=== PATIENT | female | born 1985 | race Caucasian/White ===

== ENCOUNTER 2017-01-08 09:28 | Outpatient (CLI) | payer SELFPAY ==
[~2017-01-08] VITALS: Ht 165.1 cm; Wt 93.7 kg
[2017-01-08] MEDS ORDERED: PRENTAB9 PO (09:59)
[2017-01-08 10:01] VITALS: BP 103/60
--- NOTE | 2017-01-08 12:38 | HPE ---
DATE OF ADMISSION: 01/08/2017 This lady is a 30-year-old, 1, para 0, last menstrual period (LMP) 06/12/2016, expected date of confinement (EDC) 03/19/2017 at 30 weeks of gestation with decreased movement for 24 hours. RISK FACTORS: She is Rh negative, proteinuria of 333 grams. She has chronic hypertension, treated on lisinopril. She has had a history of LEEP conization of her cervix. LABS: B negative. HIV negative. Hepatitis negative. RPR negative. Rubella immune. Varicella immune. Pap normal. Gonorrhea and chlamydia are negative. 1-hour glucose was 101. CF was negative. EXAMINATION: No distress. Symphysis fundus height is 30. Category 1 strip. No contractions. No decelerations. The patient is not feeling movement. No vaginal bleeding or loss. Blood pressure 103/60, respirations 18, pulse 87, temperature 99.3. Urine 1.000, pH 7, 2+ leukocyte esterase, everything else is negative. The rest the examination is unremarkable. Normocephalic, atraumatic. Neck full range of motion. Pupils equal and reactive to light. Distal pulses symmetric. No evidence of deep vein thrombosis (DVT), pulmonary embolus (PE) or superficial phlebitis. Lungs are clear bilaterally to bases. No wheezes or rhonchi. No costovertebral angle (CVA) tenderness. Uterus is nontender. Four quadrant bowel sounds. Appropriate symphysis fundus height. No rashes, lesions or pruritus. No arthralgia or myalgia. No complaints of cough, wheezes, shortness of breath or dyspnea on exertion. No chest pain. No bleeding. Neuro complete. No incontinency or frequency. No nausea, vomiting, diarrhea or constipation. No diabetic issues. No MANHOLE STRIPPER issues, except she has had a LEEP conization previously which is not complicating this . PAST SURGICAL HISTORY: Noncontributory. FAMILY HISTORY: Negative. She does not smok, drink or abuse drugs. There is no domestic violence. In summary, we have a 30-week gestation with decreased movement of two days and reactive NST. She is planned induction at 39 weeks. She is monitoring at 32 weeks. She was discharged undelivered with precautions and kick chart was reviewed.
== END 2017-01-08 10:37 | disposition home or self-care (01) ==
LOC: M LDO 09:28
PROVIDERS: ATTEND Obstetrics & Gynecology
DX: O36.8130 Decreased fetal movements, third trimester, not applicable or unspecified (principal); Z3A.30 30 weeks gestation of pregnancy

== ENCOUNTER → 2017-02-24 | Outpatient (REF) | payer OTHER ==
[2017-02-27 09:15] LABS: URINE TOTAL PROTEIN 10.2 MG/DL (0-12)
[2017-02-27 14:00] LABS: TOTAL PROTEIN 24 HOUR URINE 300.9 MG/24HR (50-150); TOTAL VOLUME, URINE 2950 ML
== END ==
LOC: M LAB REF 08:25
DX: R80.9 Proteinuria, unspecified (principal)
CPT/HCPCS: 81050

== ENCOUNTER 2017-03-01 06:12 | Inpatient (IN) | payer OTHER ==
[2017-03-01 08:36] LABS: HEMATOCRIT 37.1 % (36.0-47.0); HEMOGLOBIN 12.6 g/dl (12.0-16.0); MEAN CORPUSCULAR HEMOGLOBIN 29.1 pg (27.0-33.0); MEAN CORPUSCULAR VOLUME 85.7 fl (80.0-96.0); PLATELET COUNT, AUTOMATED 238 10^3/uL (150-450); RED BLOOD COUNT 4.33 10^6/uL (4.00-5.40); RED CELL DISTRIBUTION WIDTH 13.6 % (11.5-14.5); WHITE BLOOD COUNT 8.1 10^3/uL (4.0-10.0)
[2017-03-01 08:47] LABS: AMPHETAMINES URINE REFLEX NEGATIVE (NEGATIVE); BARBITURATES URINE REFLEX NEGATIVE (NEGATIVE); BENZODIAZEPINES URINE REFLEX NEGATIVE (NEGATIVE); CANNABINOIDS URINE REFLEX NEGATIVE (NEGATIVE); COCAINE METABOLITE URINE REFLE NEGATIVE (NEGATIVE); METHADONE URINE REFLEX NEGATIVE (NEGATIVE); OPIATES URINE REFLEX NEGATIVE (NEGATIVE); PHENCYCLIDINE URINE REFLEX NEGATIVE (NEGATIVE)
[2017-03-01] MEDS: LR 1,000 ML IV ×2 (09:20→17:30)
[2017-03-01] MEDS: OXYTOCIN DRIP 30 UNITS in APPROPRIATE DILUENT 1 EA IV (09:21)
[2017-03-01] MEDS: BUTORPHANOL 2 MG/ML INJ (J0595) IV (22:30)
[2017-03-01] MEDS: PROMETHAZINE INJ 25 MG/ML VIAL (J2550) IV (22:30)
[2017-03-02] MEDS: LR 1,000 ML IV ×3 (10:32→16:29)
[2017-03-02] MEDS ORDERED: FENTANYL 2MCG/ML ROPIVACAINE 0.2% IN 0.9% NACL 200ML IVBAG As Ordered (11:14)
[2017-03-02] MEDS ORDERED: REFRIGERATOR IV KEYS XX (12:30)
[2017-03-02] MEDS ORDERED: LACTATED RINGER'S 1000 ML IV (12:30)
[2017-03-02] MEDS ORDERED: EPIDURAL/PCA KEYS XX (12:30)
[2017-03-02] MEDS ORDERED: NALOXONE INJ 0.4 MG/1 ML VIAL (J2310) IV (12:30)
[2017-03-02] MEDS ORDERED: FENTANYL/ROPIVACAINE/NACL BAG 200 ML EPIDURAL (12:30)
[2017-03-02] MEDS ORDERED: ePHEDrine INJ 50 MG/ML VIAL IV (12:30)
[2017-03-02] MEDS ORDERED: diphenhydrAMINE INJ 50MG/ML VIAL (J1200) IV (12:30)
[2017-03-02] MEDS ORDERED: EPIDURAL COMMENT XX (12:30)
[2017-03-02] MEDS: ONDANSETRON 4MG/2ML VIAL (J2405) IV (17:33)
[2017-03-02] MEDS: OXYTOCIN DRIP 30 UNITS in APPROPRIATE DILUENT 1 EA IV (20:35)
[2017-03-02] MEDS ORDERED: MEASLES,MUMPS,RUBELLA VACCINE INJ (MMR-II) (90707) SC (20:45)
[2017-03-02] MEDS: LIDOCAINE 1% MDV INJ 50 ML VIAL INFIL (20:45)
[2017-03-02] MEDS ORDERED: DIBUCAINE 1% OINTMENT 30GM TOP (20:45)
[2017-03-02] MEDS: miSOPROStol 200 MCG TAB (S0191) PR (20:45)
[2017-03-02] MEDS: IBUPROFEN 800 MG TAB PO (21:46)
[2017-03-02] MEDS: ACETAMINOPHEN 500 MG TAB PO (23:12)
[2017-03-03] MEDS: LR 1,000 ML IV ×2 (00:17→05:35)
[2017-03-03] MEDS: IBUPROFEN 800 MG TAB PO ×2 (08:29→18:36)
[2017-03-03] MEDS: PRENATAL VITAMINS CHEWABLE TABLET PO (08:29)
[2017-03-03 11:29] LABS: FETAL SCREEN PROF. 1 1
[2017-03-03] MEDS: DOCUSATE SODIUM 100 MG CAP PO (13:15)
[2017-03-03] MEDS: RHOGAM 300 MCG (1500 IU) INJ (J2790) IM (15:41)
[2017-03-03] MEDS: ACETAMINOPHEN 500 MG TAB PO (15:47)
[2017-03-04] MEDS: IBUPROFEN 800 MG TAB PO (02:48)
[2017-03-04] MEDS: PRENATAL VITAMINS CHEWABLE TABLET PO (08:55)
[2017-03-04] MEDS: DOCUSATE SODIUM 100 MG CAP PO (11:42)
== END 2017-03-04 12:00 | disposition home or self-care (01) | DRG 775 ==
LOC: M LDI 06:12 → M OBS 03-02 22:35
PROC: 3E033VJ Introduction of Other Hormone into Peripheral Vein, Percutaneous Approach (ICD-10-PCS; 2017-03-01)
PROC: 10E0XZZ Delivery of Products of Conception, External Approach (ICD-10-PCS; principal; 2017-03-02)
PROC: 0KQM0ZZ Repair Perineum Muscle, Open Approach (ICD-10-PCS; 2017-03-02)
PROC: 10907ZC Drainage of Amniotic Fluid, Therapeutic from Products of Conception, Via Natural or Artificial Opening (ICD-10-PCS; 2017-03-02)
DX: O41.03X0 Oligohydramnios, third trimester, not applicable or unspecified (principal); Z3A.37 37 weeks gestation of pregnancy; O32.6XX0 Maternal care for compound presentation, not applicable or unspecified; O70.1 Second degree perineal laceration during delivery; Z37.0 Single live birth

== ENCOUNTER 2018-12-29 11:47 | Inpatient (IN) | payer OTHER ==
[~2018-12-29] VITALS: Ht 165.1 cm; Wt 97.7 kg
[~2018-12-29 11:47] MED LIST: COLA100C5 PO; DIBU1OIN TOP; MOTR200T44 PO; PRENTAB9 PO; TYLE500T78 PO
[2018-12-29 12:17] VITALS: BP 131/87
[2018-12-29 13:23] LABS: HEMOGLOBIN 12.1 g/dl (12.0-15.5); MEAN CORPUSCULAR HEMOGLOBIN 28.7 pg (27.0-33.0); MEAN CORPUSCULAR HGB CONC 32.7 g/dl (32.0-36.5); MEAN CORPUSCULAR VOLUME 87.9 fl (80.0-96.0); PLATELET COUNT, AUTOMATED 224 10^3/uL (150-450); RED BLOOD COUNT 4.21 10^6/uL (4.00-5.40); WHITE BLOOD COUNT 5.9 10^3/uL (4.0-10.0)
[2018-12-29] MEDS ORDERED: PENICILLIN G POTASSIUM IV 5 MU in D5W MINI-BAG PLUS 100 ML IV STA (13:47)
[2018-12-29] MEDS ORDERED: LR 1,000 ML IV SCH (14:00)
[2018-12-29] MEDS ORDERED: LACTATED RINGER'S 1000 ML IV ONE (14:00)
[2018-12-29] MEDS: miSOPROStol 50 MCG 1/2 TAB (S0191) PO SCH ×3 (14:08→22:00)
[2018-12-29 14:32] VITALS: BP 117/74
[2018-12-29 15:40] VITALS: BP 118/75
[2018-12-29 16:25] VITALS: BP 125/85
[2018-12-29 17:37] VITALS: BP 138/88
[2018-12-29] MEDS ORDERED: miSOPROStol 50 MCG 1/2 TAB (S0191) PO ONE (18:30)
[2018-12-29] MEDS ORDERED: ACETAMINOPHEN 500 MG TAB PO ONE (18:45)
[2018-12-29] MEDS: PENICILLIN G POTASSIUM IV 2.5 MU in IV 1 EA IV SCH (21:58)
[2018-12-29] MEDS ORDERED: FENTANYL 2MCG/ML ROPIVACAINE 0.2% IN 0.9% NACL 100ML IVBAG As Ordered ONE (22:54)
[2018-12-29] MEDS ORDERED: OXYTOCIN DRIP 30 UNITS in IV 1 EA IV SCH (23:00)
[2018-12-30] MEDS ORDERED: ePHEDrine SULFATE 25 MG/5 ML(5MG/ML) SYRINGE IV PRN (00:45)
[2018-12-30] MEDS ORDERED: REFRIGERATOR IV KEYS XX PRN (00:45)
[2018-12-30] MEDS ORDERED: EPIDURAL/PCA KEYS XX PRN (00:45)
[2018-12-30] MEDS ORDERED: NALOXONE INJ 0.4 MG/1 ML VIAL (J2310) IV PRN (00:45)
[2018-12-30] MEDS ORDERED: diphenhydrAMINE INJ 50MG/ML VIAL (J1200) IV PRN (00:45)
[2018-12-30] MEDS ORDERED: ONDANSETRON 4MG/2ML VIAL (J2405) IV PRN (00:45)
[2018-12-30] MEDS ORDERED: FENTANYL/ROPIVACAINE/NACL BAG 100 ML EPIDURAL SCH (00:45)
[2018-12-30] MEDS ORDERED: EPIDURAL COMMENT XX SCH (00:45)
[2018-12-30] MEDS: PENICILLIN G POTASSIUM IV 2.5 MU in IV 1 EA IV SCH (01:30)
[2018-12-30] MEDS: miSOPROStol 50 MCG 1/2 TAB (S0191) PO SCH (02:00)
[2018-12-30 05:36] LABS: CORD GAS ABE A -7.4; CORD GAS HCO3 A 23.5 MEQ/L; CORD GAS O2 SAT A 16.7 %; CORD GAS PCO2 A 72.9 mmHg; CORD GAS PH A 7.126 UNITS; CORD GAS PO2 A 14.2 mmHg; CORD GAS SBC A 16.7 MEQ/L; CORD GAS TCO2 A 25.7 MEQ/L
[2018-12-30 05:38] LABS: CORD GAS ABE V -4.6; CORD GAS HCO3 V 21.6 MEQ/L; CORD GAS O2 SAT V 73.3 %; CORD GAS PCO2 V 43.8 mmHg; CORD GAS PH V 7.311 UNITS; CORD GAS PO2 V 32.2 mmHg; CORD GAS SBC V 20.1 MEQ/L
[2018-12-30] MEDS ORDERED: OXYTOCIN DRIP 30 UNITS in IV 1 EA IV SCH (06:01)
[2018-12-30] MEDS ORDERED: ACETAMINOPHEN TAB 650MG DOSE (2X325MG) PO PRN (06:15)
[2018-12-30] MEDS ORDERED: IBUPROFEN 600 MG TAB PO PRN (06:15)
[2018-12-30] MEDS ORDERED: OXYTOCIN INJ 10 UNITS/ML VIAL (J2590) IV ONE (06:15)
[2018-12-30] MEDS ORDERED: DOCUSATE SODIUM 100 MG CAP PO PRN (06:15)
[2018-12-30] MEDS ORDERED: MOM 30ML SUSPENSION UDC PO PRN (06:15)
[2018-12-30] MEDS ORDERED: METHYLERGONOVINE MALEATE 0.2 MG TAB PO PRN (06:15)
[2018-12-30] MEDS ORDERED: ANUSOL HC CREAM 30GM TOP PRN (06:15)
[2018-12-30] MEDS ORDERED: DIBUCAINE 1% OINTMENT 30GM TOP PRN (06:15)
[2018-12-30] MEDS ORDERED: MEASLES,MUMPS,RUBELLA VACCINE INJ (MMR-II) (90707) SC SCH (07:00)
[2018-12-30] MEDS ORDERED: RHOGAM 300 MCG (1500 IU) INJ (J2790) IM SCH (07:00)
--- NOTE | 2018-12-30 07:59 | HPE ---
DATE OF ADMISSION: 12/29/2018 This lady is a 33-year-old 2, para 1, LMP 03/26/2018, EDC 12/31/2018 at 39 and 5 weeks of gestation for induction of labor. She is an AMA. GBS positive. History of chronic hypertension. She has had a past history of oligohydramnios. She delivered at 36 weeks a live female 7 pounds 2 ounces, Apgars were 8 and 9 at that time. Presently labs are B+, HIV negative, hepatitis negative, RPR negative, rubella immune. Varicella immune. Pap normal. Urine negative. Gonorrhea and chlamydia negative. 1-hour glucose 76. Her 28-week GTT was 110 and she is GBS positive. On examination, symphysis fundus height is 40, vertex, OA, category one strip. Cervix is posterior 2 cm, -3 station, 50% effaced. Hemoglobin 12.1, hematocrit 37.0, platelets 224, blood pressure 131/87, respirations 18, pulse 74 and temperature 98.4. Urine is not available. She is normocephalic, atraumatic. Neck: Full range of motion. Pupils equal and reactive to light. Distal pulses symmetric. No evidence of DVT, PE or superficial phlebitis. Chest is clear bilaterally at bases. No wheezes or rhonchi. No CVA tenderness. Four quadrant bowel sounds are noted. She has no rashes, lesions or pruritus. No arthralgia, myalgia. No complaint of joint pain. No complaint of cough, wheeze, shortness of breath or dyspnea on exertion. Not bleeding. Neuro complete. No incontinency or frequency. No nausea, vomiting, diarrhea, or constipation. No diabetic issues. 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 There is indication of possibly HPV positive at one time. Past medical history and surgical history unremarkable. Family history is noncontributory. She does not smoke, drink, abuse drugs. 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 No known allergies. We discussed the risks and consent for vaginal delivery, possible use of vacuum or forceps as needed, maternal indications, the devices used consistent with vaginal delivery when normal pushing cannot achieve delivery on their own or delivery needs to be done as emergency for baby's well-being. Medications used to induce or augment labor to achieve vaginal delivery, episiotomy may be required a baby deliver vaginally, may also require repair of any lacerations or tears of vagina, vulva and these could be caused by delivery and some cases emergencies arise and we have to do emergency section. After discussion with the physician, these are only done with medical and indications. It is delivered through the incision on the abdomen in situations which may be safer for mom and baby than continuing labor. Risk of vaginal delivery include but not limited bleeding, infection, injury to vagina, pelvic structures, injury to baby, damage to the uterus, reaction to anesthesia, uterine rupture, risk of hysterectomy for life-threatening bleeding, situations or , medications used to induce or augment labor, increase risk of infection, uterine tachysystole, uterine rupture, heart rate abnormalities, need for emergency section, or possible hysterectomy because of bleeding. Additional risks use of forceps or vacuum include scratches, hematomas of the head or intracranial bleed. The patient expressed understanding of all risks. Plan is to do Cytotec times one and if cervix is negotiable a Cooks catheter with Pitocin afterwards. The patient will be covered prophylactically for GBS. [id number] discussion, 40-minute discussion. The patient understands the risks and benefits, safe to proceed.
[2018-12-30] MEDS: PRENATAL VITAMINS CHEWABLE TABLET PO SCH (08:02)
[2018-12-30] MEDS: IBUPROFEN 800 MG TAB PO PRN ×2 (08:02→15:54)
[2018-12-30 08:50] VITALS: BP 127/65
--- NOTE | 2018-12-30 11:58 | IPN ---
DATE: 12/29/2018 This is [id number], para 1, admitted for induction of labor. We used Cytotec 50 mg by mouth. She had 5-7 contractions over the last four hours. We presently have a category one strip. On examination, the cervix is still very posterior. It has come down to -2. It has effaced down to 70%; however, we are unable to engage the cervical internal os in order to put a Hirsch bulb in, She has had one dose of penicillin cover her group B streptococcus (GBS). She has a slight headache. Her blood pressure presently is 138/88. The rest was normotensive; however, they said that she was having some family issues in the room and therefore her blood pressures have been elevated. The rest have been normotensive. Our plan is to give one more dose of Cytotec, after which time we anticipate use of a Hirsch bulb and Pitocin. Safe to proceed.
[2018-12-30] MEDS: ACETAMINOPHEN 500 MG TAB PO PRN ×2 (12:39→19:50)
--- NOTE | 2018-12-30 12:59 | IPN ---
DATE: 12/29/2018 This lady is a 2, para 1, admitted for induction of labor having history of chronic hypertension and advanced maternal age (AMA). She had two lots of Cytotec and presently on reevaluation, she is 4 cm, -1 station,100% effaced. An artificial rupture of membranes (ARM) was done draining clear liquor. Contractions show a category one strip. She has been afebrile. Her blood pressure is 138/88. Her headache has resolved. We anticipate she will require an epidural and we are anticipating a vaginal delivery. Will reassess this lady in two hours.
[2018-12-30 18:37] VITALS: BP 140/77
[2018-12-31] MEDS: IBUPROFEN 800 MG TAB PO PRN (02:36)
[2018-12-31 06:00] VITALS: BP_SYST 123; BP_SYST 23; BP_DIAS 77
[2018-12-31] MEDS ORDERED: DOCU100C16 PO (06:37)
[2018-12-31] MEDS ORDERED: PROC1CRE5 TOP (06:37)
[2018-12-31] MEDS ORDERED: IBUP80TA PO (06:37)
[2018-12-31] MEDS ORDERED: DIBU10OI TOP (06:37)
[2018-12-31 07:03] LABS: HEMATOCRIT 32.8 % (36.0-47.0); HEMOGLOBIN 10.5 g/dl (12.0-15.5); MEAN CORPUSCULAR HEMOGLOBIN 28.8 pg (27.0-33.0); MEAN CORPUSCULAR VOLUME 89.9 fl (80.0-96.0); PLATELET COUNT, AUTOMATED 185 10^3/uL (150-450); RED BLOOD COUNT 3.65 10^6/uL (4.00-5.40); WHITE BLOOD COUNT 6.5 10^3/uL (4.0-10.0)
[2018-12-31] MEDS: PRENATAL VITAMINS CHEWABLE TABLET PO SCH (07:35)
[2018-12-31] MEDS: ACETAMINOPHEN 500 MG TAB PO PRN (07:35)
--- NOTE | 2018-12-31 12:24 | DN ---
DATE: 12/30/2018 DELIVERY NOTE: This lady is a 2, para 1, admitted for induction of labor, advanced maternal age (AMA), and chronic hypertension. She had an epidural in place. She had artificial rupture of membranes (AROM) draining clear liquid at full dilatation. She spontaneously pushed out a live male , 9 pounds 10 ounces or 4370 grams, Apgars of 7 and 8 at one and five minutes respectively. The arterial gas was 7.12 and base excess -7.4, venous pH 7.31 and base excess -4.6. The placenta delivered spontaneously thereafter, three-vessel, cord membranes and tissues intact. Uterus contracted well under Pitocin. On examination, the anterior, posterior and lateral mckeon were normal. She had a small little abrasion at the fourchette which took one stitch of #2-[address] The sphincter was tight, intact. No evidence of occult fistula formation or tears. In summary, we have a term gestation who delivered a live male infant, uterus domenica well down on Pitocin, and patient and baby tolerating the procedure well.
[2018-12-31] MEDS ORDERED: RHOGAM 300 MCG (1500 IU) INJ (J2790) IM SCH (12:30)
--- NOTE | 2018-12-31 14:57 | DSES ---
DATE OF ADMISSION: 12/29/2018 DATE OF DISCHARGE: 12/31/2018 This lady is a 33-year-old 2, now para 2 admitted for induction of labor because of AMA and chronic hypertension. She had a spontaneous vaginal delivery, male, 9 pounds 10 ounces, 4370 grams. scores 7 and 9 at 1 and 5 minutes, respectfully. Arterial pH 7.12, base excess -7.4, venous pH 7.31, base excess -4.6. On her first day, we discussed phlebitis, cystitis, mastitis, endometritis, cellulitis, diet, exercise, pain manage, perineal, breast, and wound care. The patient's admitting hemoglobin was 12.1, hematocrit 37.0, and platelets were 224. On discharge this morning, her vital signs: Her blood pressure is 123/77, respirations 18, pulse 64, temperature is 97.6. The patient was given medications on discharge. Planning for control at 6 weeks checkup. She had significant hemorrhoids internal, which were bleeding. She was given appropriate medication for her hemorrhoidal issues. In summary, we have a term gestation, delivered a livebirth male . Medications were dispensed at discharge, and she has a 6-week checkup. edited: 01/01/2019 [id number]
== END 2018-12-31 13:00 | disposition home or self-care (01) | DRG 807 ==
LOC: M LDI 11:47 → M OBS 12-30 08:30
PROVIDERS: ADMIT Obstetrics & Gynecology; ATTEND Obstetrics & Gynecology
PROC: 3E0P7GC Introduction of Other Therapeutic Substance into Female Reproductive, Via Natural or Artificial Opening (ICD-10-PCS; 2018-12-29)
PROC: 10907ZC Drainage of Amniotic Fluid, Therapeutic from Products of Conception, Via Natural or Artificial Opening (ICD-10-PCS; 2018-12-29)
PROC: 10E0XZZ Delivery of Products of Conception, External Approach (ICD-10-PCS; principal; 2018-12-30)
DX: O10.02 Pre-existing essential hypertension complicating childbirth (principal); Z37.0 Single live birth; Z3A.39 39 weeks gestation of pregnancy; O99.824 Streptococcus B carrier state complicating childbirth